=== PATIENT | female | born 2000 | race Caucasian/White ===

== ENCOUNTER 2020-12-30 00:45 | Emergency (ER) | payer BC ==
[~2020-12-30] VITALS: Ht 152.4 cm; Wt 95.3 kg
[2020-12-30] MEDS ORDERED: CYMBALTA60 M1 PO (01:05)
[2020-12-30] MEDS ORDERED: BUSPIRONE HYDRO10 MG PO (01:06)
[2020-12-30 02:18] LABS: BASO # 0.03 (0.02-0.10); EOS # 0.19 (0.04-0.40); EOS % 2.6 % (0.1-4.0); HEMATOCRIT 41.1 % (35.0-45.0); HEMOGLOBIN 13.2 g/dL (12.0-15.0); LYMPH# 2.07 (1.20-3.40); MEAN CELL VOLUME 89 fl (78-95); MEAN CORPUSCULAR HEMOGLOBIN 28 pg (26-32); MEAN CORPUSCULAR HGB CONC 32 g/dL (33-37); MEAN PLATELET VOLUME 9.4 fl (7.4-10.4); MONO # 0.63 (0.10-0.60); NEU # 4.46 (1.40-6.50); PLATELET COUNT 283 K/mm3 (130-400); RED BLOOD COUNT 4.64 M/mm3 (4.10-5.30); RED CELL DISTRIBUTION WIDTH 12.9 % (11.5-14.5); WHITE BLOOD COUNT 7.4 K/mm3 (4.8-10.8)
[2020-12-30] MEDS ORDERED: CEPHALEXIN500 M1 PO (03:16)
[2020-12-30] MEDS ORDERED: PREDNISONE20 M1 PO (03:16)
[2020-12-30 05:39] VITALS: BP 115/76
== END 2020-12-30 03:43 | disposition home or self-care (01) ==
LOC: ED 00:45
PROVIDERS: Family Medicine
DX: H66.93 Otitis media, unspecified, bilateral (principal); F41.9 Anxiety disorder, unspecified; F32.9 Major depressive disorder, single episode, unspecified; Z88.1 Allergy status to other antibiotic agents; Z79.899 Other long term (current) drug therapy

== ENCOUNTER 2021-04-02 10:01 | Emergency (ER) | payer BC ==
[~2021-04-02] VITALS: Ht 152.4 cm; Wt 90.7 kg
[~2021-04-02 10:01] MED LIST: BUSPIRONE HYDRO10 MG PO; CEPHALEXIN500 M1 PO; CYMBALTA60 M1 PO; PREDNISONE20 M1 PO
[2021-04-02 11:47] LABS: BASO # 0.02 K/mm3 (0.02-0.10); HEMATOCRIT 40.8 % (37.0-47.0); HEMOGLOBIN 13.5 g/dL (12.5-16.0); LYMPH# 1.23 K/mm3 (1.50-4.00); MEAN CELL VOLUME 87 fl (78-100); MEAN CORPUSCULAR HEMOGLOBIN 29 pg (27-31); MEAN CORPUSCULAR HGB CONC 33 g/dL (33-37); MONO # 0.43 K/mm3 (0.20-0.80); NEU # 6.68 K/mm3 (1.40-6.50); PLATELET COUNT 321 K/mm3 (130-400); RED BLOOD COUNT 4.68 M/mm3 (4.10-5.30); RED CELL DISTRIBUTION WIDTH 12.9 % (11.5-14.5); WHITE BLOOD COUNT 8.4 K/mm3 (4.8-10.8)
[2021-04-02 11:57] LABS: ALBUMIN 4.5 g/dL (3.5-5.0); POTASSIUM 3.4 mmol/L (3.5-5.1); SODIUM 138 mmol/L (136-145)
[2021-04-02 11:58] LABS: CALCIUM 9.7 mg/dL (8.3-10.5)
[2021-04-02 12:00] LABS: GLUCOSE 107 mg/dL (65-105); TOTAL PROTEIN 7.7 g/dL (6.4-8.3)
[2021-04-02 12:01] LABS: CARBON DIOXIDE 23 mmol/L (22-29); TOTAL BILIRUBIN 0.7 mg/dL (0.2-1.2)
[2021-04-02 12:05] LABS: AST-SGOT 19 U/L (5-34)
[2021-04-02 12:07] LABS: ACETAMINOPHEN < 1 ug/mL; ALCOHOL IN-HOUSE < 10 mg/dL (<10); ALT/SGPT 18 U/L (0-55)
[2021-04-02 12:09] LABS: PH-URINE 5.5 (5.0 - 8.0); URINE APPEARANCE CLEAR; URINE BILIRUBIN NEGATIVE (NEGATIVE); URINE BLOOD NEGATIVE (NEGATIVE); URINE COLOR YELLOW; URINE GLUCOSE NEGATIVE (NEGATIVE); URINE KETONE NEGATIVE (NEGATIVE); URINE LEUKOCYTE ESTERASE NEGATIVE (NEGATIVE); URINE NITRATE NEGATIVE (NEGATIVE); URINE PROTEIN(semi-quant) NEGATIVE (NEGATIVE); URINE UROBILINOGEN NORMAL (NORMAL); URINE WBC 0-1 /hpf (0-3)
[2021-04-02 16:46] VITALS: BP 128/76
== END 2021-04-02 16:46 | disposition home or self-care (01) ==
LOC: ED 10:01
PROVIDERS: Nurse Practitioner
DX: F39 Unspecified mood [affective] disorder (principal)

== ENCOUNTER 2021-04-02 19:48 | Emergency (ER) | payer BC ==
[~2021-04-02] VITALS: Ht 167.6 cm; Wt 90.7 kg
[2021-04-02 20:31] LABS: BASO # 0.02 K/mm3 (0.02-0.10); EOS # 0.06 K/mm3 (0.04-0.40); EOS % 0.7 % (1.0-5.0); HEMATOCRIT 39.5 % (37.0-47.0); HEMOGLOBIN 13.2 g/dL (12.5-16.0); LYMPH# 1.72 K/mm3 (1.50-4.00); MEAN CELL VOLUME 86 fl (78-100); MEAN CORPUSCULAR HEMOGLOBIN 29 pg (27-31); MEAN CORPUSCULAR HGB CONC 33 g/dL (33-37); MEAN PLATELET VOLUME 9.3 fl (7.4-10.4); MONO # 0.77 K/mm3 (0.20-0.80); NEU # 6.29 K/mm3 (1.40-6.50); PLATELET COUNT 311 K/mm3 (130-400); RED BLOOD COUNT 4.59 M/mm3 (4.10-5.30); RED CELL DISTRIBUTION WIDTH 12.8 % (11.5-14.5); URINE WBC 0 /hpf (0-3); WHITE BLOOD COUNT 8.9 K/mm3 (4.8-10.8)
[2021-04-02 20:46] LABS: ALBUMIN 4.3 g/dL (3.5-5.0); POTASSIUM 3.1 mmol/L (3.5-5.1); SODIUM 142 mmol/L (136-145)
[2021-04-02 20:47] LABS: CALCIUM 9.5 mg/dL (8.3-10.5)
[2021-04-02 20:48] LABS: URINE APPEARANCE CLEAR; URINE COLOR YELLOW
[2021-04-02 20:49] LABS: GLUCOSE 89 mg/dL (65-105); TOTAL PROTEIN 7.2 g/dL (6.4-8.3); URINE BILIRUBIN NEGATIVE (NEGATIVE); URINE BLOOD NEGATIVE (NEGATIVE); URINE GLUCOSE NEGATIVE (NEGATIVE); URINE KETONE NEGATIVE (NEGATIVE); URINE LEUKOCYTE ESTERASE NEGATIVE (NEGATIVE); URINE MUCUS PRESENT (NOT PRESENT); URINE NITRATE NEGATIVE (NEGATIVE); URINE PROTEIN(semi-quant) TRACE (NEGATIVE); URINE UROBILINOGEN NORMAL (NORMAL)
[2021-04-02 20:50] LABS: CARBON DIOXIDE 21 mmol/L (22-29); TOTAL BILIRUBIN 0.6 mg/dL (0.2-1.2)
[2021-04-02 20:52] LABS: ALCOHOL IN-HOUSE 104 mg/dL (<10)
[2021-04-02 20:54] LABS: AST-SGOT 18 U/L (5-34)
[2021-04-02 20:56] LABS: ACETAMINOPHEN < 1 ug/mL; ALT/SGPT 17 U/L (0-55)
[2021-04-03 04:31] VITALS: BP 120/72
== END 2021-04-03 04:31 ==
LOC: ED 19:48
PROVIDERS: Nurse Practitioner
DX: T43.592A Poisoning by other antipsychotics and neuroleptics, intentional self-harm, initial encounter (principal); F39 Unspecified mood [affective] disorder; Z20.822 Contact with and (suspected) exposure to COVID-19
CPT/HCPCS: J7030

== ENCOUNTER 2021-06-11 11:39 | Emergency (ER) | payer BC ==
[2021-06-11 11:48] VITALS: BP 124/72
== END 2021-06-11 12:45 | disposition home or self-care (01) ==
LOC: ED 11:39
DX: S60.414A Abrasion of right ring finger, initial encounter (principal); S60.416A Abrasion of right little finger, initial encounter; W22.8XXA Striking against or struck by other objects, initial encounter

== ENCOUNTER → 2021-09-01 | Outpatient (CLI) | payer BC | LOC: RAD 08:51 | DX: M54.50 Low back pain, unspecified (principal); M54.6 Pain in thoracic spine ==

== ENCOUNTER → 2021-11-27 | Outpatient (CLI) | payer BC | LOC: RAD 10:15 | DX: M25.512 Pain in left shoulder (principal); M54.2 Cervicalgia | CPT/HCPCS: Q9967 ==

== ENCOUNTER → 2021-12-14 | Outpatient (CLI) | payer BC | LOC: RAD 12-06 09:00 | DX: N83.291 Other ovarian cyst, right side (principal) ==

== ENCOUNTER → 2022-12-30 | Outpatient (CLI) | payer BC ==
[~2022-12-30] MED LIST changes: +DEPO-PROVER150 MG/M2; +MORGIDOX 2X100100 MG PO; +PHENTERMINE H37.5 M3 PO
== END ==
LOC: LAB 08:30
DX: N92.1 Excessive and frequent menstruation with irregular cycle (principal); J01.90 Acute sinusitis, unspecified; R53.83 Other fatigue; E66.9 Obesity, unspecified; F31.9 Bipolar disorder, unspecified

== ENCOUNTER → 2023-03-11 | Outpatient (CLI) | payer SELFPAY ==
[2023-03-11 10:11] LABS: BASO # 0.01 K/mm3 (0.02-0.10); EOS % 1.7 % (1.0-5.0); HEMATOCRIT 42.8 % (37.0-47.0); HEMOGLOBIN 13.7 g/dL (12.5-16.0); LYMPH# 2.15 K/mm3 (1.50-4.00); MEAN CELL VOLUME 91 fl (78-100); MEAN CORPUSCULAR HEMOGLOBIN 29 pg (27-31); MEAN CORPUSCULAR HGB CONC 32 g/dL (33-37); MEAN PLATELET VOLUME 9.7 fl (7.4-10.4); MONO # 0.51 K/mm3 (0.20-0.80); NEU # 3.26 K/mm3 (1.40-6.50); PLATELET COUNT 249 K/mm3 (130-400); RED BLOOD COUNT 4.69 M/mm3 (4.10-5.30)
== END ==
LOC: LAB 09:53
PROVIDERS: Family Medicine
DX: F32.A Depression, unspecified (principal); F41.1 Generalized anxiety disorder; N92.1 Excessive and frequent menstruation with irregular cycle; E66.9 Obesity, unspecified; E78.2 Mixed hyperlipidemia; E55.9 Vitamin D deficiency, unspecified; D64.9 Anemia, unspecified; H66.91 Otitis media, unspecified, right ear

== ENCOUNTER → 2023-08-06 | Outpatient (CLI) | payer BC ==
[2023-08-06 09:07] LABS: BASO # 0.02 K/mm3 (0.02-0.10); EOS # 0.14 K/mm3 (0.04-0.40); EOS % 2.3 % (1.0-5.0); HEMATOCRIT 38.8 % (37.0-47.0); HEMOGLOBIN 12.6 g/dL (12.5-16.0); LYMPH# 2.25 K/mm3 (1.50-4.00); MEAN CELL VOLUME 89 fl (78-100); MEAN CORPUSCULAR HEMOGLOBIN 29 pg (27-31); MEAN CORPUSCULAR HGB CONC 33 g/dL (33-37); MEAN PLATELET VOLUME 8.9 fl (7.4-10.4); MONO # 0.38 K/mm3 (0.20-0.80); NEU # 3.35 K/mm3 (1.40-6.50); PLATELET COUNT 279 K/mm3 (130-400); RED BLOOD COUNT 4.35 M/mm3 (4.10-5.30); RED CELL DISTRIBUTION WIDTH 12.3 % (11.5-14.5); WHITE BLOOD COUNT 6.2 K/mm3 (4.8-10.8)
[2023-08-06 09:16] LABS: ALBUMIN 4.4 g/dL (3.5-5.0)
[2023-08-06 09:17] LABS: CALCIUM 9.5 mg/dL (8.3-10.5)
[2023-08-06 09:20] LABS: TOTAL BILIRUBIN 0.3 mg/dL (0.2-1.2)
== END ==
LOC: LAB 08:55
PROVIDERS: Nurse Practitioner
DX: Z00.00 Encounter for general adult medical examination without abnormal findings (principal)

== ENCOUNTER 2024-04-13 04:10 | Emergency (ER) | payer BC ==
[~2024-04-13] VITALS: Ht 152.4 cm; Wt 83.0 kg
[2024-04-13] MEDS ORDERED: VENLAFAXINE HCL75 M3 PO (04:28)
[2024-04-13] MEDS ORDERED: Ondansetron 4 MG/2 ML VIAL IV ONE (04:45)
[2024-04-13 04:49] LABS: BASO # 0.01 K/mm3 (0.02-0.10); EOS # 0.09 K/mm3 (0.04-0.40); EOS % 1.1 % (1.0-5.0); HEMOGLOBIN 12.9 g/dL (12.5-16.0); LYMPH# 0.69 K/mm3 (1.50-4.00); MEAN CELL VOLUME 88 fl (78-100); MEAN CORPUSCULAR HEMOGLOBIN 29 pg (27-31); MEAN CORPUSCULAR HGB CONC 33 g/dL (33-37); MEAN PLATELET VOLUME 9.2 fl (7.4-10.4); MONO # 0.33 K/mm3 (0.20-0.80); NEU # 7.41 K/mm3 (1.40-6.50); PLATELET COUNT 206 K/mm3 (130-400); RED BLOOD COUNT 4.41 M/mm3 (4.10-5.30); RED CELL DISTRIBUTION WIDTH 12.8 % (11.5-14.5); WHITE BLOOD COUNT 8.5 K/mm3 (4.8-10.8)
[2024-04-13 04:50] LABS: ALBUMIN 3.8 g/dL (3.5-5.0); CALCIUM 8.7 mg/dL (8.3-10.5); TOTAL BILIRUBIN 0.7 mg/dL (0.2-1.2); TOTAL PROTEIN 6.3 g/dL (6.4-8.3)
[2024-04-13] MEDS ORDERED: Ketorolac 30 MG/ML VIAL IV ONE (05:00)
[2024-04-13] MEDS ORDERED: ZOFRAN ODT4 MG PO (05:56)
[2024-04-13 06:16] VITALS: BP 107/59
== END 2024-04-13 06:23 | disposition home or self-care (01) ==
LOC: ED 04:10
PROVIDERS: Nurse Practitioner Family
DX: A08.4 Viral intestinal infection, unspecified (principal); Z90.49 Acquired absence of other specified parts of digestive tract
CPT/HCPCS: J1885; J2405; J7120

== ENCOUNTER → 2024-05-25 | Outpatient (CLI) | payer SELFPAY ==
[~2024-05-25] MED LIST changes: +VENLAFAXINE HCL75 M3 PO; +ZOFRAN ODT4 MG PO
== END ==
LOC: RAD 11:05
DX: S49.82XA Other specified injuries of left shoulder and upper arm, initial encounter (principal); X58.XXXA Exposure to other specified factors, initial encounter